=== PATIENT | male | born 1985 | race Two or more races ===

== ENCOUNTER 2024-03-14 23:03 | Emergency (ER) | payer OTHER ==
[~2024-03-14] VITALS: Ht 167.6 cm; Wt 59.0 kg
[2024-03-15] MEDS ORDERED: ORPHENADRINE CITRATE 30 MG/ML AMPUL IM ONE (00:30)
[2024-03-15] MEDS ORDERED: KETOROLAC TROMETHAMINE 60 MG VIAL IM ONE (00:30)
[2024-03-15] MEDS ORDERED: DICLOFENAC SODI75 MG PO (01:03)
== END 2024-03-15 01:24 | disposition home or self-care (01) ==
LOC: ER 23:04
DX: M54.2 Cervicalgia (principal)
CPT/HCPCS: 72040; 96372; 99283; J1885; J2360